=== PATIENT | female | born 2000 | race Caucasian/White ===

== ENCOUNTER 2023-06-09 20:10 | Emergency (ER) | payer BC, SELFPAY ==
[2023-06-09 20:12] VITALS: BP 138/86
[2023-06-09 21:55] LABS: HCG, Urine Qualitative Screen Negative
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
== END 2023-06-09 22:42 | disposition home or self-care (01) ==
LOC: EMR 20:10
PROVIDERS: Nurse Practitioner; EMERGENCY PHYSICIAN Emergency Medicine; FAMILY PHYSICIAN Physician Assistant Medical
DX: M54.2 Cervicalgia (principal); V43.52XA Car driver injured in collision with other type car in traffic accident, initial encounter
CPT/HCPCS: 99285; 70450; 72050; 81025

== ENCOUNTER 2024-06-14 10:20 | Emergency (ER) | payer BC, SELFPAY ==
[2024-06-14 10:21] VITALS: BP 118/74
--- NOTE | 2024-06-14 10:56 | ED.GENMED ---
History of Present Illness
General
Chief Complaint: Musculo-Skeletal Complaint
Source: patient
Time Seen by Provider: 06/14/24 10:48
History of Present Illness
History of Present Illness:
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
has had continued pain since. Today patient states pain seemed a little bit worse which is what prompted her to come to the ER. Has taken some Tylenol with some relief. No other injuries sustained. Patient states pain worsens with attempted deep
inspiration.
Past History
Past History
ED Past Medical History: Other (Congenital cardiac abnormality status postsurgery)
ED Past Surgical History: Cardiac
Social History
Tobacco: Non-smoker
Alcohol: None
Drug: None
Personal: Single
Living: with family
Employment: Employed
Review of Systems
Review of Systems
All Other Systems: ROS reviewed and negative except as documented in HPI and ROS
Phy Exam
Physical Exam
Physical Exam:
GENERAL: Alert , in no apparent distress
HEAD: Normocephalic atraumatic
EYE: conjunctiva clear
NECK: Supple
ENT: o/p clr, mmm.
CARDIAC: Regular rate and rhythm
LUNGS: Clear breath sounds bilaterally, no acute respiratory distress, no wheezes/rales/rhonchi
CHEST WALL: Mild tenderness just inferior and slightly lateral to the left breast. No overlying skin changes
NEUROLOGICAL: Alert and oriented
SKIN: Warm and dry, skin intact.
MUSCULOSKELETAL: well perfused.
PSYCH: Normal and appropriate interaction.
Scores
Heart Failure Risk
Heart Failure Risk Score: Not Applicable
Heart Score for Chest Pain Patients
STEMI patient?: Not applicable
Withdrawal Assessment of Alcohol
Withdrawal Assessment Completed?: Not applicable
Course
Orders/Labs/Results
Orders:
Orders
06/14/24 10:24
Ribs, Left 3 View W/PA Chest CR [CR Ribs-left 3 Vw W/pa Chest] Urgent
Comment:
Reason For Exam: pain
Vital Signs
Initial and Last Documented VS:
Initial Vital Signs
Temp Pulse Resp BP Pulse Ox
98.0 F 78 18 118/74 94
06/14/24 10:21 06/14/24 10:21 06/14/24 10:21 06/14/24 10:21 06/14/24 10:21
Last Documented Vital Signs
Temp Pulse Resp BP Pulse Ox
98.0 F 78 18 118/74 98
06/14/24 10:21 06/14/24 10:21 06/14/24 10:21 06/14/24 10:21 06/14/24 11:50
MDM/Problems Addressed
Differential Diagnosis Includes:
Rib contusion, rib fracture, cartilaginous injury, pneumothorax, overall minimal to no concern for any visceral injury given duration since injury and current hemodynamic stability
MDM/Problems Addressed:
24-year-old female presenting to the emergency department for evaluation of continued left-sided rib/thoracic pain since an accidental fall 1 week ago. Patient hemodynamically stable, no acute respiratory distress. X-ray ordered. She declines
anything for pain presently. Anticipate discharge home.
*Radiology
Radiology exam reviewed: preliminary read by ED provider (No acute rib fracture)
*Pulse Oximetry
Patient hypoxic: no
*Critical Care Note
Total Time (30-74mins, 75-104mins- exclusive of procedures): Not Applicable
Patient Management
Escalation/DeEscalation of care consider admission/obs:
X-rays without evidence for rib fracture. No pneumothorax or other acute complication noted either. Patient is stable for discharge. Aware of return precautions.
ED Attending Note
-
Portions of this chart may have been created with voice recognition software.� Occasional wrong word or��sound alike� substitutions may have occurred due to the inherent limitations of voice recognition software.
Discharge Plan
Departure
Patient Disposition: Home (Routine Discharge)
Date of Disposition: 06/14/24
Time of Disposition: 11:37
Patient with high blood pressure during this ER visit?: No
Discharge Problem:
Contusion of rib on left side
Instructions: Contusion (DC)
Prescriptions:
No Action
No Current Medications
0
Referrals:
Aldo Goodson MD [Family Provider] -
Stand Alone Forms: Return to Work
Interventions
Interventions:
*Risk Screen - Suicide Last Done: 06/14/24 10:21
*General Assessment Last Done: 06/14/24 10:21
*Neglect/Abuse Screening Last Done: 06/14/24 10:21
*ED- Fall Risk Assessment Last Done: 06/14/24 11:50
*ED COVID-19 Vaccine History Last Done: 06/14/24 11:50
*Nursing Disposition Last Done: 06/14/24 11:50
ED-Musculoskeletal Assessment Last Done: 06/14/24 11:51
Discharge Date and Time
Discharge Date/Time: 06/14/24 11:51
Print Language: EMIRATI
== END 2024-06-14 11:51 | disposition home or self-care (01) ==
LOC: EMR 10:20
PROVIDERS: EMERGENCY PHYSICIAN Emergency Medicine; FAMILY PHYSICIAN Family Medicine
DX: S20.212A Contusion of left front wall of thorax, initial encounter (principal); W01.190A Fall on same level from slipping, tripping and stumbling with subsequent striking against furniture, initial encounter
CPT/HCPCS: 99283; 71101

== ENCOUNTER 2024-08-27 12:54 | Emergency (ER) | payer BC, SELFPAY ==
[2024-08-27 12:58] VITALS: BP 126/83
[2024-08-27 13:19] LABS: % Basophils 0.5 % (0-2); % Eosinophils 1.5 % (0-6); % Immature Granulocytes 0.3 % (0-0.5); % Lymphocytes 18.2 % (20.5-51.1); % Monocytes 8.1 % (1.7-9.3); % Neutrophils 71.4 % (42.2-75.2); Absolute Eosinophils 0.1 10^3/uL (0-0.7); Absolute Lymphocytes 1.2 10^3/uL (1.2-3.4); Absolute Monocytes 0.5 10^3/uL (0.1-0.6); Absolute Neutrophils 4.8 10^3/uL (1.4-6.5); Hematocrit 45.9 % (37.0-47.0); Hemoglobin 15.6 g/dL (12.0-16.0); Mean Corpuscular Hgb 31.6 pg (27.0-31.0); Mean Corpuscular Volume 93.1 fL (81.0-99.0); Mean Platelet Volume 9.4 fL (7.4-10.4); Nucleated Red Blood Cells % 0 %; Platelet Count 305 10^3/uL (130-400); Red Blood Cell Count 4.93 10^6/uL (4.20-5.40); Red Cell Dist. Width 12.3 % (11.5-14.5); White Blood Cell Count 6.7 10^3/uL (4.8-10.8)
[2024-08-27 13:35] LABS: HCG, Serum Qualitative Screen Negative
[2024-08-27 13:45] LABS: ALT (SGPT) 27 U/L (0-35); AST (SGOT) 26 U/L (14-36); Albumin 5.2 g/dl (3.5-5.0); Alkaline Phosphatase 47 U/L (38-126); Blood Urea Nitrogen 17 mg/dl (7-17); Calcium 9.8 mg/dl (8.4-10.2); Carbon Dioxide 22 mmol/L (22-30); Chloride 106 mmol/L (98-107); Glucose 120 mg/dl (70-99); Potassium 4.1 mmol/L (3.5-5.1); Sodium 140 mmol/L (135-145); Total Protein 8.5 g/dl (6.3-8.2); eGFR > 60.00
[2024-08-27 14:56] VITALS: BMI 24.5
--- NOTE | 2024-08-27 17:17 | CON.NEURO ---
Neuro Assessment/Plan
Assessment
this constellation of right face/both hands tingling, dizzy, ataxia, and exam showing left sided vibratory loss - unable to localize, most likely new symptoms of her migraine, but will need to rule out brain tumor and cardio embolic with her history
check brain MRI w/o and w/ contrast
Consultation
Order
Date of Consultation: 08/27/24
Requesting Provider: Isma Benedict
Reason for Consult: paresthesias, incoordination
Subjective/Objective
Subjective Data
Date of Service: August 27, 2024
She is a 24 year old woman, h/o congenital 2 chamber heart, multiple heart surgeries, migraines. Usual migraine is either left or right temporal with visual aura. Today had usual migraine then developed tingling right face and both hands, dizzines,
and impaired hand/eye coordination which is now resolved; just has usual left temporal migraine with is tolerable
Objective Data
Vital Signs
Temp Pulse Resp BP Pulse Ox
36.8 C 92 18 126/83 94
08/27/24 12:58 08/27/24 12:58 08/27/24 12:58 08/27/24 12:58 08/27/24 12:58
Lab Results
08/27/24 13:08
08/27/24 13:08
Sodium 140 mmol/L (135-145) 08/27/24 13:08
Potassium 4.1 mmol/L (3.5-5.1) 08/27/24 13:08
BUN 17 mg/dl (7-17) 08/27/24 13:08
Glucose 120 mg/dl (70-99) H 08/27/24 13:08
Calcium 9.8 mg/dl (8.4-10.2) 08/27/24 13:08
Patient Allergies
lamotrigine (From Lamictal) Allergy (Verified 08/27/24 12:57)
Unknown
Physical Exam
-
AAOx3, speech clear, language intact
VFF, EOMI, face symmetric
full strength b/l UE/LE
sensation trace left sided vibratory loss, intact touch/temp
FNF normal
Medications
-
Home Medications
�Medication �Instructions �Recorded
No Meds [No Current Medications] 12/20/20
[2024-08-27 17:37] VITALS: BP 101/67
[2024-08-27 18:00] VITALS: BP 105/72
--- NOTE | 2024-08-27 18:25 | ED.GENMED ---
History of Present Illness
General
Chief Complaint: Numbness
Source: patient and family
Exam Limitations: none
Time Seen by Provider: 08/27/24 15:51
History of Present Illness
History of Present Illness:
24-year-old female presents with onset of ocular migraine at work. No ocular migraines or pain behind the eye. This is not unusual for her and happens about every month. However that she then developed some tingling in both hands some
paresthesias to the right side of the face felt slightly out of it is slightly incoordinated. This lasted an hour or so symptoms have resolved. History of congenital heart disease. Is currently taking an aspirin a day. Currently asymptomatic
Past History
Past History
ED Past Medical History: Other (Congenital cardiac abnormality status postsurgery)
ED Past Surgical History: Cardiac
Social History
Tobacco: Non-smoker
Alcohol: None
Drug: None
Personal: Single
Living: with family
Employment: Employed
Review of Systems
Review of Systems
All Other Systems: Not applicable
Respiratory: Reports no symptoms
Cardiac: Reports no symptoms
ABD/GI: Reports no symptoms
Phy Exam
Physical Exam
Physical Exam:
GENERAL: Alert and oriented in no apparent distress
EYE: Orbits normal.
NECK: Supple, no thyroid palpable
ENT: Pharynx without erythema
CARDIAC: Regular rate and rhythm. Sternotomy scar
LUNGS: Clear breath sounds,normal
ABDOMEN: Soft, without focal tenderness or distention
NEUROLOGICAL: Alert and oriented , cranial nerves II through XII intact. Speech normal. Finger to norms normal. Warm and dry. Light touch intact. Graphesthesia intact.
SKIN: Warm and dry, no rash or lesion, no discoloration, skin intact.
MUSCULOSKELETAL: No edema,no deformity.Good color
PSYCH: Normal and appropriate interaction.
Course
Orders/Labs/Results
Orders:
Orders
08/27/24 13:02
Electrocardiogram (*1) Urgent
Reason for Study: Chest Pain
EKG- Treatment ONCE
Test Result ONCE
08/27/24 13:08
Complete Blood Count/With Diff Urgent
Comprehensive Metabolic Panel Urgent
HCG, Serum Qualitative Screen Urgent
Comment: Notify provider if positive test present
08/27/24 16:27
MR Brain W/o & With Contrast Urgent
Comment:
Reason For Exam: Transient neurologic symptoms. History congenital
Recent pill cam endoscopy?: No
08/27/24 19:44
Amoxicillin [Amoxil] 500 mg PO NOW STA
Abnormal Lab Results
08/27/24
13:08
MCH 31.6 H pg
(27.0-31.0)
Lymphocytes % 18.2 L %
(20.5-51.1)
Glucose 120 H mg/dl
(70-99)
Total Protein 8.5 H g/dl
(6.3-8.2)
Albumin 5.2 H g/dl
(3.5-5.0)
08/27/24 13:08
08/27/24 13:08
Vital Signs
Initial and Last Documented VS:
Initial Vital Signs
Temp Pulse Resp BP Pulse Ox
98.2 F 92 18 126/83 94
08/27/24 12:58 08/27/24 12:58 08/27/24 12:58 08/27/24 12:58 08/27/24 12:58
Last Documented Vital Signs
Temp Pulse Resp BP Pulse Ox
98.2 F 93 18 107/68 97
08/27/24 12:58 08/27/24 19:13 08/27/24 19:13 08/27/24 19:13 08/27/24 19:13
MDM/Problems Addressed
Differential Diagnosis Includes:
Neurologic exam is normal at this time. Likely a complex ocular migraine. However with her congenital heart disease would have to consider embolic stroke or tumor. Discussed and seen by neurology. They recommend MRI.
*Radiology
Radiology exam reviewed: radiology read reviewed (No acute findings on MRI. Sinusitis)
*Pulse Oximetry
Patient hypoxic: no (94%)
*Critical Care Note
Total Time (30-74mins, 75-104mins- exclusive of procedures): Not Applicable
Data Reviewed
Review of Other/Old Records Reveals: Labs and Testing
Update Note
Update Note:
Patient has remained stable and nontoxic. Discussed with neurology. No indication for admission. Also discussed with patient's covering bid clerk. We will treat her sinusitis given the severity.
ED Attending Note
-
Portions of this chart may have been created with voice recognition software.� Occasional wrong word or��sound alike� substitutions may have occurred due to the inherent limitations of voice recognition software.
Discharge Plan
Departure
Patient Disposition: Home (Routine Discharge)
Date of Disposition: 08/27/24
Time of Disposition: 19:42
Patient with high blood pressure during this ER visit?: No
Discharge Problem:
Transient neurologic symptoms, Ocular migraine, History of congenital heart disease, Sinusitis
Instructions: Paresthesia (DC), Headaches in adults, Sinusitis in adults - ED discharge instructions
Prescriptions:
New
amoxicillin 500 mg capsule
500 mg PO TID 14 Days Qty: 42 0RF
Referrals:
Aldo Goodson MD [Family Provider, Family Practice] - Follow up in 2-3 days
Activity Restrictions/Additional Instructions:
The prescription was sent to your pharmacy
Close follow-up with your primary physician and would also contact your bid clerk for follow-up
Return with any concerning neurologic symptoms or worsening headache fever etc.
Interventions
Interventions:
*Risk Screen - Suicide Last Done: 08/27/24 12:58
*General Assessment Last Done: 08/27/24 14:56
*Neglect/Abuse Screening Last Done: 08/27/24 12:58
*ED- Fall Risk Assessment Last Done: 08/27/24 14:56
*ED COVID-19 Vaccine History Last Done: 08/27/24 14:56
*Nursing Disposition Last Done: 08/27/24 19:53
ED- Neurological Assessment Last Done: 08/27/24 14:56
Discharge Date and Time
Discharge Date/Time: 08/27/24 19:54
Print Language: ICELANDIC
[2024-08-27 19:11] VITALS: BP 107/68
[2024-08-27 19:13] VITALS: BP 107/68
[2024-08-27] MEDS: AMOXIL 500 MG PO (19:51)
== END 2024-08-27 19:54 | disposition home or self-care (01) ==
LOC: EMR 12:54
PROVIDERS: EMERGENCY PHYSICIAN Emergency Medicine; FAMILY PHYSICIAN Family Medicine
DX: G43.109 Migraine with aura, not intractable, without status migrainosus (principal); R29.818 Other symptoms and signs involving the nervous system; Z87.74 Personal history of (corrected) congenital malformations of heart and circulatory system
CPT/HCPCS: 99284; 70553; 80053; 84703; 85025; 93005; A9575

== ENCOUNTER 2024-12-25 10:31 | Emergency (ER) | payer BC, SELFPAY ==
[2024-12-25 10:33] VITALS: BP 111/57
[2024-12-25 10:50] LABS: Hematocrit 44.3 % (37.0-47.0); Hemoglobin 15.5 g/dL (12.0-16.0); Mean Corp Hgb Conc. 35.0 g/dL (33.0-37.0); Mean Corpuscular Volume 94.1 fL (81.0-99.0); Nucleated Red Blood Cells % 0 %; Platelet Count 240 10^3/uL (130-400); Red Cell Dist. Width 12.0 % (11.5-14.5)
[2024-12-25 11:21] LABS: HCG, Serum Qualitative Screen Negative
[2024-12-25 11:25] LABS: ALT (SGPT) 25 U/L (0-35); AST (SGOT) 26 U/L (14-36); Albumin 4.6 g/dl (3.5-5.0); Alkaline Phosphatase 46 U/L (38-126); Blood Urea Nitrogen 16 mg/dl (7-17); Calcium 9.0 mg/dl (8.4-10.2); Carbon Dioxide 17 mmol/L (22-30); Chloride 110 mmol/L (98-107); Glucose 125 mg/dl (70-99); Potassium 4.4 mmol/L (3.5-5.1); Sodium 137 mmol/L (135-145); Total Protein 7.4 g/dl (6.3-8.2); eGFR > 60.00
[2024-12-25] MEDS: TORADOL 15 MG IV (11:34)
[2024-12-25] MEDS: NSS 500 IV (11:35)
[2024-12-25 11:37] VITALS: BMI 24.0
[2024-12-25 11:38] VITALS: BP 104/58
--- NOTE | 2024-12-25 13:39 | ED.GENMED ---
History of Present Illness
General
Chief Complaint: Vaginal Bleeding
Source: patient
Time Seen by Provider: 12/25/24 11:03
History of Present Illness
History of Present Illness:
Note:
CHIEF COMPLAINT(S)
Severe cramping with associated bleeding and near syncope episode.
HISTORY OF PRESENT ILLNESS
The patient is a 24-year-old female who presented with intense cramping leading to near syncope. She reports experiencing severe cramps in the morning, which she described as 'super bad,' and attempted to alleviate the pain with acetaminophen
without relief. She experienced significant bleeding, soaking through a large tampon, accompanied by cold sweats and a near fainting episode. The patient describes the incident as 'pretty much passed out,' and she was standing at the time,
struggling to fight off the fainting sensation. She missed her menstrual period for two weeks, which she describes as unusual as she is typically regular. Recent symptoms did not include nausea or vomiting, and she reported no pain in her back. The
worsening of symptoms eventually prompted her to seek medical care.
Additional historian
Mom states that she herself had a history of syncope. Mom admits that she has a history of congenital heart disease
PAST MEDICAL AND SURGICAL HISTORY
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
CHRONIC MEDICAL CONDITIONS SIGNIFICANTLY AFFECTING CARE
- Hypoplastic left heart syndrome
SOCIAL DETERMINANTS AFFECTING HEALTH
The patient is taking low-dose aspirin regularly, possibly for preventive measures related to her cardiac history.
MEDICATIONS
- Daily aspirin
PHYSICAL EXAM
General: Alert, no acute distress.
Skin: Warm, dry.
Head: Normocephalic, atraumatic.
Neck: Supple, trachea midline.
Eye, Ears, Nose, Mouth, and Throat: Oral mucosa moist.
Cardiovascular: Regular rate, noted to have a systolic murmur.
Respiratory: Lung dennison clear to auscultation. Respirations are non-labored.
Gastrointestinal: Abdomen non-distended, no lower abdominal tenderness.
Back: No costovertebral angle tenderness.
Musculoskeletal: Normal range of motion, normal strength.
Neurological: Alert and oriented to person, place, time, and situation, No focal neurological deficit observed.
Psychiatric: Cooperative, appropriate mood & affect.
PROBLEM LIST
Acute Problems:
- Severe cramping and bleeding
- Near syncope
Chronic Problems:
- Hypoplastic left heart syndrome
PLAN
- Conduct laboratory tests to assess hemoglobin levels and evaluate other CBC components.
- Administer intravenous fluids for rehydration.
- Perform an electrocardiogram (EKG) to rule out any cardiac anomalies.
- Consider administration of intravenous ibuprofen for pain relief if permissible.
- Provide patient education on hematological management and when to seek further care.
DIFFERENTIAL DIAGNOSIS
The Differential Diagnosis includes, in no particular order and is not limited to:
- Dysmenorrhea
- Metrorrhagia
- Endometrial polyps
- Uterine fibroids
- Endometriosis
- Anemia
- Vasovagal syncope
- Orthostatic hypotension
- Cardiac arrhythmias
- Cervical pathology
Disposition:
SUMMARY OF ENCOUNTER
A 24-year-old female presented to the emergency department with severe menstrual cramping and vaginal bleeding. She described experiencing a near syncope episode potentially related to vasovagal stimulation due to intense pain. On examination, the
patient appeared well, with no current bleeding observed, and her symptoms had stabilized. A test was conducted and returned negative.
PLAN
- The patient will be discharged with instructions to seek follow-up care.
- Education on managing symptoms and indications for seeking further medical attention, such as increased bleeding or recurrent fainting spells.
INDEPENDENT REVIEW OF LABS AND INTERPRETATION OF TESTS
My independent review of the test is negative.
PATIENT EDUCATION AND COUNSELING
The patient was educated on hematological management and instructed to seek further medical evaluation if symptoms like significant bleeding or another syncope episode occur.
FOLLOW-UP INSTRUCTIONS
The patient was advised to follow up with her primary care provider or teenage babysitter as needed.
MEDICAL DECISION MAKING
- Complexity of Data Reviewed: Chronic conditions affecting care include hypoplastic left heart syndrome. The differential diagnosis considered includes dysmenorrhea, metrorrhagia, endometrial polyps, uterine fibroids, endometriosis, anemia,
vasovagal syncope, orthostatic hypotension, cardiac arrhythmias, and cervical pathology.
- Data:
Category 1: Ordered and reviewed a test.
Category 2: My independent interpretation of the test was negative.
- Risk:
Discharge considerations included addressing the risk of further bleeding or syncope while ensuring the patient is stable. She was considered safe for outpatient management with instructions for close follow-up due to stable exam findings and
improvement in symptoms.
DIAGNOSIS
- Dysmenorrhea (ICD-10: N94.6)
- Vasovagal syncope episode (ICD-10: R55)
- Menometrorrhagia (ICD-10: N92.1)
Past History
Past History
ED Past Medical History: Other (Congenital cardiac abnormality status postsurgery)
ED Past Surgical History: Cardiac
Social History
Tobacco: Non-smoker
Alcohol: None
Drug: None
Personal: Single
Living: with family
Employment: Employed
Phy Exam
Physical Exam
Physical Exam:
.
Course
Orders/Labs/Results
Orders:
Orders
12/25/24 10:36
Test Result ONCE
12/25/24 10:41
Complete Blood Count/With Diff Urgent
Comprehensive Metabolic Panel Urgent
HCG, Serum Qualitative Screen Urgent
12/25/24 11:19
0.9% Sodium Chloride 500 ml [Nss] 500 ml IV BOLUS
12/25/24 11:23
Electrocardiogram (*1) Urgent
Reason for Study: Syncope
EKG- Treatment ONCE
12/25/24 11:24
Ketorolac [Toradol] 15 mg IV NOW STA
Abnormal Lab Results
12/25/24
10:41
MCH 32.9 H pg
(27.0-31.0)
Absolute Lymphs (auto) 1.0 L 10^3/uL
(1.2-3.4)
Immature Gran % 0.6 H %
(0-0.5)
Lymphocytes % 15.0 L %
(20.5-51.1)
Chloride 110 H mmol/L
(98-107)
Carbon Dioxide 17 L mmol/L
(22-30)
Glucose 125 H mg/dl
(70-99)
12/25/24 10:41
12/25/24 10:41
Vital Signs
Initial and Last Documented VS:
Initial Vital Signs
Temp Pulse Resp BP Pulse Ox
97.7 F 71 16 111/57 98
12/25/24 10:33 12/25/24 10:33 12/25/24 10:33 12/25/24 10:33 12/25/24 10:33
Last Documented Vital Signs
Temp Pulse Resp BP Pulse Ox
97.7 F 73 18 104/58 98
12/25/24 10:33 12/25/24 11:38 12/25/24 11:38 12/25/24 11:38 12/25/24 13:40
*Pulse Oximetry
SaO2: 98
Oxygen Mode of Delivery: Room air
Patient hypoxic: no
*Critical Care Note
Total Time (30-74mins, 75-104mins- exclusive of procedures): Not Applicable
ED Attending Note
-
Portions of this chart may have been created with voice recognition software.� Occasional wrong word or��sound alike� substitutions may have occurred due to the inherent limitations of voice recognition software.
Discharge Plan
Departure
Patient Disposition: Home (Routine Discharge)
Date of Disposition: 12/25/24
Time of Disposition: 13:46
Patient with high blood pressure during this ER visit?: No
Discharge Problem:
Syncope, vasovagal, Heavy periods
Instructions: Syncope (fainting), Heavy Periods (DC)
Prescriptions:
No Action
amoxicillin 500 mg capsule
500 mg PO TID 14 Days Qty: 42 0RF
Referrals:
Kirill Chew DO [Family Provider, Family Practice]
Activity Restrictions/Additional Instructions:
Please drink plenty fluids and use ibuprofen and Tylenol for pain control. Return immediately for chest pain, shortness of breath, passing out episode or any other concerns
Interventions
Interventions:
*Risk Screen - Suicide Last Done: 12/25/24 10:33
*General Assessment Last Done: 12/25/24 11:37
*Neglect/Abuse Screening Last Done: 12/25/24 10:33
*ED- Fall Risk Assessment Last Done: 12/25/24 11:40
*ED COVID-19 Vaccine History Last Done: 12/25/24 11:40
*ED Influenza Vaccine History Last Done: 12/25/24 11:40
ED-Female Genitourinary Assessment Last Done: 12/25/24 11:40
Discharge Date and Time
Print Language: KINYARWANDA
== END 2024-12-25 14:08 | disposition home or self-care (01) ==
LOC: EMR 10:31
PROVIDERS: EMERGENCY PHYSICIAN Emergency Medicine; FAMILY PHYSICIAN Family Medicine
DX: N94.6 Dysmenorrhea, unspecified (principal); R55 Syncope and collapse; N92.1 Excessive and frequent menstruation with irregular cycle; Z79.82 Long term (current) use of aspirin; Z87.74 Personal history of (corrected) congenital malformations of heart and circulatory system
CPT/HCPCS: 96374; 96361; 99284; 80053; 84703; 85025; 93005

== ENCOUNTER 2025-02-23 19:52 | Emergency (ER) | payer BC, SELFPAY ==
[2025-02-23 20:01] VITALS: BP 111/67
[2025-02-23 20:30] VITALS: BP 98/70
[2025-02-23 20:31] VITALS: BMI 23.3
[2025-02-23 20:43] LABS: COVID-19 Antigen Negative (Negative)
[2025-02-23 21:00] VITALS: BP 111/73
[2025-02-23] MEDS: NSS 1000 IV (21:20)
[2025-02-23 21:35] LABS: Hematocrit 45.7 % (37.0-47.0); Hemoglobin 15.5 g/dL (12.0-16.0); Mean Corp Hgb Conc. 33.9 g/dL (33.0-37.0); Mean Corpuscular Volume 93.8 fL (81.0-99.0); Nucleated Red Blood Cells % 0 %; Platelet Count 177 10^3/uL (130-400); Red Cell Dist. Width 12.0 % (11.5-14.5)
[2025-02-23 21:49] LABS: Troponin I < 0.012 ng/ml
[2025-02-23 21:50] LABS: ALT (SGPT) 29 U/L (0-35); AST (SGOT) 29 U/L (14-36); Albumin 4.6 g/dl (3.5-5.0); Alkaline Phosphatase 51 U/L (38-126); Blood Urea Nitrogen 6 mg/dl (7-17); Calcium 8.9 mg/dl (8.4-10.2); Carbon Dioxide 27 mmol/L (22-30); Chloride 100 mmol/L (98-107); Estimated Creatinine Clearance 104 ml/min; Glucose 90 mg/dl (70-99); Potassium 3.5 mmol/L (3.5-5.1); Sodium 133 mmol/L (135-145); Total Protein 7.7 g/dl (6.3-8.2); eGFR > 60.00
[2025-02-23 22:00] VITALS: BP 100/67
[2025-02-23] MEDS: TORADOL 15 MG IV (23:05)
--- NOTE | 2025-02-24 01:20 | ED.GENMED ---
History of Present Illness
General
Chief Complaint: Chest Pain
Source: patient
Time Seen by Provider: 02/23/25 20:43
History of Present Illness
History of Present Illness:
Note:
CHIEF COMPLAINT(S)
Chest pain and cough.
HISTORY OF PRESENT ILLNESS
The patient is a 24-year-old female presenting with chest discomfort and dizziness, which began on Friday. The chest pain is constant, described by the patient as feeling 'like cold' and is exacerbated by movement, palpation, or deep inspiration.
The patient denies hemoptysis but reports coughing up mucus. The cough began two days prior, and the patient has experienced dizziness intermittently. The patient had a fever, measured at 100.4�F. She had a previous sternotomy, but reports no past
episodes of chest pain related to the prior surgery. Concern regarding new and persistent chest pain prompted todays visit.
PAST MEDICAL AND SURIGICAL HISTORY
Previous sternotomy.
MEDICATIONS
The patient is currently taking [id number] medications, including an unspecified influenza treatment, possibly Tamiflu (oseltamivir).
REVIEW OF SYSTEMS
- Cardiovascular: Chest pain, dizziness, systolic murmur noted.
- Respiratory: Cough with mucus production.
- Constitutional: Fever of 100.4�F.
PHYSICAL EXAM
General: Alert, no acute distress.
Skin: Warm, dry.
Head: Normocephalic, atraumatic.
Neck: Supple, trachea midline.
Eye Ears, nose, mouth, and throat: Oral mucosa moist.
Cardiovascular: Systolic murmur noted. Heart is somewhat hyperdynamic but regular. No edema.
Respiratory: Clear lung sounds, no lower extremity edema, or jugular venous distension noted.
Gastrointestinal: Abdomen nondistended.
Back: Normal range of motion, normal alignment.
Musculoskeletal: Normal range of motion, normal strength.
Neurological: Alert and oriented to person, place, time, and situation. No focal neurological deficit observed.
Psychiatric: Cooperative, appropriate mood & affect.
PROBLEM LIST
Acute Problems:
- Chest pain
- Upper respiratory symptoms suggestive of influenza
PLAN
- Obtain a chest X-ray to assess for any air where it should not be and rule out mechanical causes for chest pain.
- Check cardiac enzymes to rule out myocarditis or other cardiac involvement.
- Hydration with fluids; patient encouraged to drink fluids orally.
- Symptomatic treatment for influenza with medications like Tamiflu.
- Monitor and review laboratory results for any abnormalities.
DIFFERENTIAL DIAGNOSIS
The Differential Diagnosis includes, in no particular order and is not limited to:
- Costochondritis
- Myocarditis
- Viral pneumonia
- Musculoskeletal pain related to sternotomy
- Pulmonary embolism
- Pericarditis
- Pleuritis
- Gastroesophageal reflux disease
- Anxiety-related chest pain
- Influenza infection with atypical presentation
CARE-UPDATE
02/24/25 - 01:18
The patients heart enzymes are normal, and theres no evidence of pericarditis, though it can be subtle. The patient will be discharged with instructions to take ibuprofen every six hours, alternating with Tylenol, and start Tamiflu as a
precautionary measure against influenza. The patient has no fever at present and reports that the pain is resolved. The patient is advised to maintain high fluid intake and return if symptoms worsen or if shortness of breath occurs.
Disposition:
SUMMARY OF ENCOUNTER
A 24-year-old female with a history of hypoplastic heart syndrome presented to the emergency department with chest pain, cough, fever, and congestion. She was found to be influenza-positive. The patient reported chest pain that prompted an
evaluation to rule out potential causes such as pericarditis or myocarditis. An EKG was conducted, showing no significant changes from previous tests, although minor discordance in anterior leads was noted. Lab tests indicated normal white blood
cell and hemoglobin counts. On reassessment, her symptoms had improved, allowing for the decision of stable discharge for outpatient follow-up.
DISPOSITION
Discharge.
ASSESSMENT
The patient presented with symptoms consistent with an influenza infection, with chest pain that was evaluated to rule out more severe cardiac complications like pericarditis or myocarditis. No hypoxia was present to suggest pulmonary embolism.
PLAN
The patient is to continue the use of oseltamivir (Tamiflu) to address the underlying influenza infection. She is advised to take NSAIDs for symptomatic management of chest pain and fever.
INDEPENDENT REVIEW OF LABS AND INTERPRETATION OF TESTS
My independent review of EKG shows no significant changes from prior recordings, with minor discordance in anterior leads.
My independent review of CBC indicates that the white blood cell count is within normal limits and hemoglobin is normal.
PATIENT EDUCATION AND COUNSELING
The patient was educated on the importance of monitoring her symptoms and maintaining good hydration. She was counseled to continue taking prescribed medications as directed and to seek medical attention if her symptoms worsen.
FOLLOW-UP INSTRUCTIONS
Instructions for outpatient follow-up with primary care or a specialist have been given to monitor and manage her condition further, particularly in the context of her previous heart condition.
MEDICATION RECONCILIATION
The patient was given oseltamivir (Tamiflu) for influenza treatment and NSAIDs for managing chest pain and fever.
MEDICAL DECISION MAKING
- Number and Complexity of Problems Addressed: Chronic conditions affecting care include hypoplastic heart syndrome. Differential diagnosis includes costochondritis, myocarditis, viral pneumonia, musculoskeletal pain related to sternotomy, pulmonary
embolism, pericarditis, pleuritis, gastroesophageal reflux disease, anxiety-related chest pain, and influenza infection with atypical presentation.
- Data:
Category 1:
My independent interpretation of EKG was conducted.
I reviewed basic laboratory findings, including the CBC.
- Risk:
Consideration of Admission/Observation: Escalation of care including admission/observation was considered given the complexity and risk of the patients presenting complaint, exam findings, and/or their underlying comorbidities. However, ultimately,
I feel the patient is safe for outpatient management with close follow-up. Reasoning: Work-up is reassuring, does not reveal any acute life/organ threatening processes, patients symptoms well controlled upon reevaluation, reexamination is
reassuring, vitals are stable, patient agreeable with discharge, reliable for follow-up.
DIAGNOSIS
- Influenza (J11.1)
- Chest pain, unspecified (R07.9)
Past History
Past History
ED Past Medical History: Other (Congenital cardiac abnormality status postsurgery)
ED Past Surgical History: Cardiac
Social History
Tobacco: Non-smoker
Alcohol: None
Drug: None
Personal: Single
Living: with family
Employment: Employed
Phy Exam
Physical Exam
Physical Exam:
.
Course
Orders/Labs/Results
Orders:
Orders
02/23/25 19:53
Electrocardiogram (*1) Urgent
Reason for Study: Chest Pain
EKG- Treatment ONCE
02/23/25 20:09
COVID-19 Antigen Urgent
Source: Nasal Swab
Influenza A+B Rapid Molecular Urgent
KADEEM Source: Nasal Swab
Specimen Description:
02/23/25 20:44
0.9% Sodium Chloride 1000 ml [Nss] 1,000 ml IV BOLUS
02/23/25 20:58
CR Chest - 2 Views Urgent
Comment:
Reason For Exam: cough, cp, h/o hypoplastic L heart w/ surgery
02/23/25 21:13
Complete Blood Count/With Diff Urgent
Comprehensive Metabolic Panel Urgent
Troponin I Urgent
02/23/25 22:55
Ketorolac [Toradol] 15 mg IV NOW STA
02/23/25 22:56
Electrocardiogram (*1) Urgent
Reason for Study: Chest Pain
EKG- Treatment ONCE
Abnormal Lab Results
02/23/25
21:13
MCH 31.8 H pg
(27.0-31.0)
Absolute Lymphs (auto) 0.5 L 10^3/uL
(1.2-3.4)
Neutrophils % 84.3 H %
(42.2-75.2)
Lymphocytes % 7.8 L %
(20.5-51.1)
Sodium 133 L mmol/L
(135-145)
BUN 6 L mg/dl
(7-17)
02/23/25 21:13
02/23/25 21:13
Vital Signs
Initial and Last Documented VS:
Initial Vital Signs
Temp Pulse Resp BP Pulse Ox
100.4 F H 110 20 111/67 90
02/23/25 20:01 02/23/25 20:01 02/23/25 20:01 02/23/25 20:01 02/23/25 20:01
Last Documented Vital Signs
Temp Pulse Resp BP Pulse Ox
100.4 F H 99 19 100/67 95
02/23/25 20:01 02/23/25 22:23 02/23/25 22:23 02/23/25 22:00 02/24/25 01:20
*Pulse Oximetry
SaO2: 95
Oxygen Mode of Delivery: Room air
Patient hypoxic: no
*Critical Care Note
Total Time (30-74mins, 75-104mins- exclusive of procedures): Not Applicable
ED Attending Note
-
Portions of this chart may have been created with voice recognition software.� Occasional wrong word or��sound alike� substitutions may have occurred due to the inherent limitations of voice recognition software.
Discharge Plan
Departure
Patient Disposition: Home (Routine Discharge)
Date of Disposition: 02/24/25
Time of Disposition: 01:22
Patient with high blood pressure during this ER visit?: No
Discharge Problem:
Chest pain, Influenza
Instructions: Chest Pain PCP Follow Up, Flu
Prescriptions:
No Action
amoxicillin 500 mg capsule
500 mg PO TID 14 Days Qty: 42 0RF
Referrals:
Aldo Goodson MD [Family Provider, Family Practice]
Activity Restrictions/Additional Instructions:
Please use ibuprofen every 6 hours for fever and pain control. Please see your doctor or energy efficiency engineer in the next 3 days for follow-up and reevaluation. Return Libby for shortness of breath, worsening pain or any other concerns. Please start and
finish your Tamiflu as prescribed. Drink plenty fluids and rest.
Interventions
Interventions:
*Risk Screen - Suicide Last Done: 02/23/25 20:01
*General Assessment Last Done: 02/23/25 20:01
*Neglect/Abuse Screening Last Done: 02/23/25 20:32
*ED COVID-19 Vaccine History Last Done: 02/23/25 20:32
*ED Influenza Vaccine History Last Done: 02/23/25 20:32
[facility] Fall Risk Assessment Tool Last Done: 02/23/25 20:33
ED- Cardiac Assessment Last Done: 02/23/25 20:32
Discharge Date and Time
Print Language: [id number]
== END 2025-02-24 01:41 | disposition home or self-care (01) ==
LOC: EMR 19:52
PROVIDERS: Emergency Medicine; EMERGENCY PHYSICIAN Emergency Medicine; FAMILY PHYSICIAN Family Medicine
DX: J10.1 Influenza due to other identified influenza virus with other respiratory manifestations (principal)
CPT/HCPCS: 99284; 96374; 96361; 71046; 80053; 84484; 85025; 87502; 87811; 93005